=== PATIENT | female | born 1990 | race Caucasian/White ===

== ENCOUNTER 2018-06-09 04:16 | Inpatient (IN) | payer BC ==
[2018-06-09] MEDS ORDERED: Penicillin G Potassium IV* 5,000,000 UNITS in NS 0.9% 100 ML* 100 ML IVPB ONE (05:14)
[2018-06-09] MEDS ORDERED: Lactated Ringers 1000 ML Bag* 1,000 ML IV ONE ×2 (05:14→08:40)
[2018-06-09] MEDS ORDERED: Buffered Lidocaine 1% SYRIN* 1 ML/SYRINGE INTRADERM ONE (05:14)
--- NOTE | 2018-06-09 05:25 | HP ---
General Information - Reason for Visit labor check. Has been parul on and off past 25 hours. 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 Past Surgical History Comment: appendectomy 02/2015 Family History Comment: M: HTN - Antepartal Records Antepartal Records: Reviewed, Uncomplicated Review of Systems Constitutional: Uncomfortable CV Complaint: No Respiratory: Shortness of Breath: No Gastrointestinal: Nausea, Soft Stool Genitourinary: No Leaking Fluid, Spotting Musculoskeletal: Contractions Neurological: Headache - mild headache, earlier, now resolved Movement: Normal Exam Allergies/Adverse Reactions: Allergies No Known Allergies Allergy (Verified 06/09/18 05:25) - Measurements Height: 5 ft 6 in Weight: 183 lb Weight in lbs: [phone] Body Mass Index (BMI): 29.5 Pre- Weight: 150 lb Weight Gained This : 33 lbs and 0 ozs - Exam Breast: - - soft, no masses Extremities: No Edema Heart: Normal Rhythm/Heart Sounds HEENT: No Significant Findings Lungs: Clear Bilaterally Reflexes: DTR 2+ Thyroid: No Thyromegaly - Ultrasound/Biophysical Profile Ultrasound Status: Not Done Targeted Exam Findings Estimated Weight: 8 lbs Cervical Exam: 3cm Effacement: 90% Station: 0 Presenting Part: Vertex Membrane Status: Intact EFM Findings - External Monitor Findings Baseline Heart Rate: 140 External Monitor Findings: Accelerations Present, No Pattern of Variable or Late Decelerations, Variability Moderate, Baseline Stable External Monitor Findings Comment: category 1 Contractions: Moderate Contraction Frequency: every 3-4 minutes Assessment/Plan - Assessment primip at 41 wks in labor - Obstetrical Risk Factors Obstetrical Risk Factors: GBS Positive - Plan Plan: Antibiotic Prophylaxis, Admit - Anticipate Vaginal Delivery Plan Comment: reviewed options for pain relief - Date/Time of Admission Date of Admission: 06/09/18 Time of Admission: 05:20
[2018-06-09 05:46] LABS: ABS Basophils 0 10^3/ul (0-0.2); ABS Eosinophils 0 10^3/ul (0-0.6); ABS Lymphocytes 2.1 10^3/ul (1.0-4.8); ABS Monocytes 0.5 10^3/ul (0-0.8); ABS Neutrophils 8.6 10^3/ul (1.5-7.7); ABS Nucleated RBC 0 10^3/ul; Eosinophil % 0.2 %; Hematocrit 39 % (35-47); Hemoglobin 13.4 g/dl (12.0-16.0); Lymphocyte % 18.2 %; Mean Corpuscular HGB Conc 34 g/dl (31-36); Mean Corpuscular Hemoglobin 29 pg (27-31); Mean Corpuscular Volume 85 fL (80-97); Mean Platelet Volume 8.7 fL (7.4-10.4); Nucleated Red Blood Cells % 0; Platelet Count 219 10^3/ul (150-450); Red Cell Distribution Width 14 % (10.5-15); White Blood Count 11.3 10^3/ul (3.5-10.8)
[2018-06-09] MEDS ORDERED: Lactated Ringers 1000 ML Bag* 1,000 ML IV SCH ×3 (06:00→23:45)
[2018-06-09] MEDS ORDERED: fentaNYL* 50 MCG/ML 2 ML VIAL (100 MCG VIAL) ONE (07:07)
[2018-06-09] MEDS ORDERED: OBEPIDURAL* 250 ML EPIDURAL ONE (07:07)
[2018-06-09] MEDS ORDERED: Phenylephrine IV* 40 MCG/ML 10 ML SYRINGE IV PUSH PRN ×2 (08:40)
[2018-06-09] MEDS ORDERED: EPHEDrine (Pressors)* 50 MG/ML VIAL IV PUSH PRN ×2 (08:40)
[2018-06-09] MEDS ORDERED: Sodium Citrate/Citric Acid* 15 ML UDC PO PRN (08:40)
[2018-06-09] MEDS ORDERED: Famotidine TAB* 20 MG PO PRN (08:40)
[2018-06-09] MEDS ORDERED: Lactated Ringers 1000 ML Bag* 500 ML IV PRN ×2 (08:40)
[2018-06-09] MEDS ORDERED: OBEPIDURAL* 250 ML EPIDURAL SCH (09:00)
--- NOTE | 2018-06-09 09:30 | PN ---
Progress Note - Progress Note Date of Service: 06/09/18 Note: SOAP: S: Pt comfortable with an epidural. Resting in bed. Clear diet breakfast. O: BP 118/86, HR 96 FHR : 130, +accels, -decels, moderate variability Contractions: occasional VE: 3/90/0, vtx, bloody show A: IUP@41 here in early labor Epidural effectively controlling pain Cervical exam, unchanged Ineffective contraction pattern No evidence of metabolic acidmeia IBOW P: Discussion between pt and provider re: augmentation of labor. Risks vs. benefits of Pitocin reviewed. Questions answered. Pt in agreement with plan. Start Low-dose pitocin Encouraged pt to nap, and then position changes to support rotation and descent Anticipate progression to
[2018-06-09] MEDS ORDERED: Oxytocin in LR* 20 UNITS/1,000 ML BAG IVPB SCH (10:00)
[2018-06-09] MEDS: Penicillin G Potassium IV* 2,500,000 UNITS in NS 0.9% 100 ML* 100 ML IVPB SCH ×3 (11:07→18:36)
[2018-06-09] MEDS ORDERED: Calcium Carbonate CHEW TAB* 500 MG (TUMS) ONE (11:27)
[2018-06-09] MEDS: Calcium Carbonate CHEW TAB* 500 MG (TUMS) PO PRN ×2 (11:28→21:09)
--- NOTE | 2018-06-09 13:21 | PN ---
Progress Note - Progress Note Date of Service: 06/09/18 Note: SOAP: S: Pt doing well. Comfortable in bed. Not feeling contractions. O: FHR 140, +accels, no decels, moderate variability Contractions: q3-4, palpate moderate, good resting tone Pit@12mU VE: 3.5/90/0, vtx A: No evidence of metabolic acidemia Contractions regular Pain well managed with epidural Plan: AROM, clear fluid Continue to increase Pit as tolerated Anticipate progression to
[2018-06-09] MEDS ORDERED: Acetaminophen TAB* 325 MG ONE (14:25)
[2018-06-09] MEDS: Acetaminophen TAB* 325 MG PO PRN (14:26)
--- NOTE | 2018-06-09 15:34 | PN ---
Progress Note - Progress Note Date of Service: 06/09/18 Note: SOAP: S: Pt doing well. Comfortable in bed. Has a LUBIN. States Tylenol helping. Using an eye mask. O: FHR 140, +accels, no decels, moderate variability Contractions: q2-3, palpate moderate, good resting tone Pit@16mU VE: 5/90/0, vtx A: No evidence of metabolic acidemia Contractions regular Pain well managed with epidural Plan: VE prn Regular position changes Anticipate progression to
[2018-06-09] MEDS ORDERED: Acetaminophen TAB* 325 MG PO PRN (23:50)
[2018-06-09] MEDS ORDERED: Glycerin ADULT SUPP PR PRN (23:50)
[2018-06-10] MEDS ORDERED: RHO D Immune Globulin (HUMAN)* 300 MCG = 1,500 I.U. INJ IM ONE
--- NOTE | 2018-06-10 00:16 | PROCNOTE ---
[facility] OB: Delivery Note - Delivery A Date of : 06/09/18 Time of : 22:48 Gestational Age in Weeks and Days at Delivery: 41 Weeks and 0 Days Delivery Method: Spontaneous Vaginal Labor: Spontaneous Amniotic Fluid: Clear Estimated Blood Loss: 450 Anesthesia/Analgesia: CEI for Labor Delivered By: Priti Hilliard - Nursery Level of Nursery: Regular/Bedside - Perineum Perineal Injury: 2nd Degree - Repaired with 3-0 rapide, under local infiltration , 1% lido & CEI, pt. tolerated well. Perineal Repair: By Delivering Practioner - Events Delivery Events of Note: Pitocin During Labor, Full Course of Antibiotics - Additional Delivery Notes Additional Delivery Notes: Pt admitted for spontaneous labor. Pt progressed to complete after augmentation with Pitocin and AROM. Received CEI per pt request, with moderate relief. Length of labor was 10 hours and 54 minutes; pt pushed 2 hours and 13 minutes. Category II FHT during second stage of labor with tachycardia. Pt afebrile. Return to baseline with IV fluids and O2. Strong maternal pushing effort led to , liveborn female. OA to RAMIRO, transverse shoulders delivered in [place]. Crapo vigorous with spontaneous cry, heartbeat >110bpm, delivered to maternal abdomen. Cord clamped x2 and cut by FOB. Spontaneous delivery of intact placenta, membranes complete. Fundus firm to massage with IV pitocin infusing. EBL 400mL. Careful inspection of the perineum revealed second degree midline laceration, repaired in the usual fashion, anatomy restored, good homeostasis achieved. At time of note, mother and infant in stable condition, planning to breastfeed.
[2018-06-10] MEDS: Ibuprofen TAB* 600 MG PO PRN ×4 (02:47→20:39)
[2018-06-10] MEDS: Dibucaine 1% 28.35 GM TUBE PR PRN (02:47)
[2018-06-10] MEDS: Witch Hazel PAD* JAR TOPICAL PRN ×2 (02:47→20:39)
[2018-06-10] MEDS ORDERED: Simethicone TAB* 80 MG TAB.CHEW PO SCH (08:30)
[2018-06-10 08:38] LABS: ABS Basophils 0 10^3/ul (0-0.2); ABS Eosinophils 0 10^3/ul (0-0.6); ABS Lymphocytes 1.1 10^3/ul (1.0-4.8); ABS Monocytes 0.9 10^3/ul (0-0.8); ABS Neutrophils 13.3 10^3/ul (1.5-7.7); ABS Nucleated RBC 0 10^3/ul; Eosinophil % 0.1 %; Hematocrit 28 % (35-47); Hemoglobin 9.6 g/dl (12.0-16.0); Lymphocyte % 7.3 %; Mean Corpuscular HGB Conc 35 g/dl (31-36); Mean Corpuscular Hemoglobin 30 pg (27-31); Mean Corpuscular Volume 85 fL (80-97); Mean Platelet Volume 8.1 fL (7.4-10.4); Nucleated Red Blood Cells % 0; Platelet Count 169 10^3/ul (150-450); Red Blood Count 3.24 10^6/ul (4.00-5.40); Red Cell Distribution Width 14 % (10.5-15); White Blood Count 15.3 10^3/ul (3.5-10.8)
[2018-06-10] MEDS: Docusate CAP* 100 MG PO SCH ×3 (08:42→20:39)
[2018-06-10] MEDS: Ferrous Gluconate TAB* 324 MG TAB PO SCH ×2 (08:57→20:39)
[2018-06-11] MEDS: Ibuprofen TAB* 600 MG PO PRN ×3 (06:43→18:41)
[2018-06-11] MEDS: Witch Hazel PAD* JAR TOPICAL PRN (08:38)
[2018-06-11] MEDS: Docusate CAP* 100 MG PO SCH ×2 (08:38→13:07)
[2018-06-11] MEDS: Dibucaine 1% 28.35 GM TUBE PR PRN (08:38)
[2018-06-11] MEDS: Ferrous Gluconate TAB* 324 MG TAB PO SCH (08:38)
[2018-06-11] MEDS: Acetaminophen TAB* 325 MG PO PRN ×2 (08:41→16:30)
[2018-06-11 10:55] VITALS: BP 128/73
[2018-06-11] MEDS: Calcium Carbonate CHEW TAB* 500 MG (TUMS) PO PRN (16:30)
== END 2018-06-11 19:00 | disposition home or self-care (01) | DRG 560 ==
LOC: MCHOBOUT 04:16 → MCHOB 05:15
PROVIDERS: ADMIT Midwife; ATTEND Advanced Practice Midwife
PROC: 10E0XZZ Delivery of Products of Conception, External Approach (ICD-10-PCS; principal; 2018-06-09)
PROC: 10907ZC Drainage of Amniotic Fluid, Therapeutic from Products of Conception, Via Natural or Artificial Opening (ICD-10-PCS; 2018-06-09)
PROC: 0KQM0ZZ Repair Perineum Muscle, Open Approach (ICD-10-PCS; 2018-06-09)
DX: O48.0 Post-term pregnancy (principal); O98.92 Unspecified maternal infectious and parasitic disease complicating childbirth; Z37.0 Single live birth; O70.1 Second degree perineal laceration during delivery; O90.81 Anemia of the puerperium; D64.9 Anemia, unspecified; O76 Abnormality in fetal heart rate and rhythm complicating labor and delivery; Z3A.41 41 weeks gestation of pregnancy
CPT/HCPCS: 36415; 85025; 86850; 86900; 86901; A9270-GY; J2540; J3010

== ENCOUNTER 2020-06-10 11:22 | Inpatient (IN) ==
[2020-06-10] MEDS ORDERED: Penicillin G Potassium IV 5,000,000 UNITS in NS 0.9% 100 ml BAG 100 ML IVPB ONE (12:05)
[2020-06-10 14:12] LABS: Urine Benzodiazepine Screen None Detected (None Detect); Urine Cannabinoids Screen None Detected (None Detect); Urine Opiates Screen None Detected (None Detect)
[2020-06-10] MEDS: Penicillin G Potassium IV 3,000,000 UNITS in NS 0.9% 100 ml BAG 100 ML IVPB SCH (17:08)
[2020-06-10] MEDS: Lactated Ringers 1000 ml BAG 1,000 ML IV ONE (21:49)
[2020-06-10 22:10] LABS: ABS Eosinophils 0.1 10^3/ul (0-0.6); ABS Lymphocytes 2.5 10^3/ul (1.0-4.8); ABS Monocytes 0.6 10^3/ul (0-0.8); ABS Neutrophils 7.3 10^3/ul (1.5-7.7); Eosinophil % 0.8 %; Hematocrit 41 % (35-47); Lymphocyte % 23.9 %; Mean Corpuscular HGB Conc 34 g/dL (31-36); Mean Corpuscular Hemoglobin 30 pg (27-31); Mean Corpuscular Volume 87 fL (80-97); Platelet Count 180 10^3/uL (150-450); Red Blood Count 4.68 10^6 /uL (3.70-4.87); Red Cell Distribution Width 13 % (10-15); White Blood Count 10.5 10^3/uL (3.5-10.8)
[2020-06-10] MEDS ORDERED: OBEPIDURAL 250 ML EPIDURAL ONE (23:34)
[2020-06-11] MEDS: Lactated Ringers 1000 ml BAG 1,000 ML IV ONE (00:09)
[2020-06-11] MEDS ORDERED: Sodium Citrate/Citric Acid LIQ 15 ML UDC PO PRN (00:33)
[2020-06-11] MEDS ORDERED: EPHEDrine (Pressors) 50 MG/ML VIAL IV PUSH PRN (00:33)
[2020-06-11] MEDS ORDERED: Lactated Ringers 1000 ml BAG 1,000 ML IV ONE (00:33)
[2020-06-11] MEDS ORDERED: Phenylephrine 40 mcg/mL 10mL (400mcg) SYRINGE IV PUSH PRN (00:33)
[2020-06-11] MEDS ORDERED: OBEPIDURAL 250 ML EPIDURAL SCH (01:00)
[2020-06-11] MEDS: Lactated Ringers 1000 ml BAG 1,000 ML IV SCH ×2 (01:28→05:38)
[2020-06-11] MEDS: Penicillin G Potassium IV 3,000,000 UNITS in NS 0.9% 100 ml BAG 100 ML IVPB SCH ×3 (01:50→10:19)
[2020-06-11] MEDS ORDERED: Oxytocin in LR 20 UNITS/1,000 ML BAG IVPB SCH ×2 (04:00→08:00)
[2020-06-11] MEDS ORDERED: Dibucaine 1% OINT 28.35 GM TUBE PR PRN (07:29)
[2020-06-11] MEDS ORDERED: Witch Hazel PAD JAR TOPICAL PRN (07:29)
[2020-06-11] MEDS ORDERED: Lactated Ringers 1000 ml BAG 1,000 ML IV SCH (08:00)
[2020-06-11] MEDS ORDERED: Lidocaine 1% VIAL 10 MG/ML VIAL ONE (13:31)
[2020-06-12 08:49] LABS: ABS Eosinophils 0.1 10^3/ul (0-0.6); ABS Lymphocytes 2.3 10^3/ul (1.0-4.8); ABS Monocytes 0.5 10^3/ul (0-0.8); Eosinophil % 0.7 %; Hematocrit 35 % (35-47); Hemoglobin 12.3 g/dL (12.0-16.0); Lymphocyte % 23.5 %; Mean Corpuscular HGB Conc 35 g/dL (31-36); Mean Corpuscular Hemoglobin 31 pg (27-31); Mean Corpuscular Volume 88 fL (80-97); Mean Platelet Volume 8.2 fL (7.4-10.4); Platelet Count 155 10^3/uL (150-450); Red Blood Count 4.02 10^6 /uL (3.70-4.87); Red Cell Distribution Width 13 % (10-15); White Blood Count 9.8 10^3/uL (3.5-10.8)
[2020-06-13 08:17] VITALS: BP 123/83
== END 2020-06-13 12:49 | disposition home or self-care (01) | DRG 560 ==
LOC: MCHOBOUT 11:22 → MCHOB 11:53
PROVIDERS: ADMIT Midwife; ATTEND Midwife